=== PATIENT | female | born 1985 | race Two or more races ===

== ENCOUNTER 2017-03-12 20:36 | Emergency (ER) | payer OTHER ==
[~2017-03-12] VITALS: Ht 157.5 cm; Wt 114.8 kg
[~2017-03-12 20:36] MED LIST: AZIT250T6 PO; HYDR1TAB14 PO; PROM50SU6 RC
[2017-03-12 20:57] VITALS: BP 118/63
[2017-03-12] MEDS: IV NORMAL SALINE 1,000ML 1,000 ML IV SCH ×2 (21:20→22:50)
[2017-03-12] MEDS ORDERED: 0.9 % SODIUM CHLORIDE 10 ML DISP.SYRIN. IV PRN (21:30)
[2017-03-12 21:41] LABS: BILIRUBIN,URINE NEG (NEG); CLARITY,URINE CLOUDY; COLOR,URINE YELLOW; GLUCOSE,URINE NEG (NEG); NITRITE,URINE NEG (NEG); UROBILINOGEN,URINE 0.2 mg/dL (0.2 mg/dL)
[2017-03-12 21:42] LABS: BACTERIA,URINE 0 /HPF (0-FEW); RBC,URINE OCC /HPF (0-2); SQUAMOUS EPITHELIAL CELL,UR MANY /LPF
[2017-03-12 21:43] LABS: AMORPHOUS SEDIMENT,UR PRESENT /HPF
--- NOTE | 2017-03-12 23:18 | RAD ---
Examination: Transabdominal, transvaginal ultrasound examination the pelvis. HISTORY History of pelvic pain, history of fibroid COMPARISON None available Findings: The uterus measures 9.3 x 5.9 x 4.6 centimeters. The cervical length measures 4.3 centimeters. There is a 1.8 x 0.8x 0.8 centimeter hypo echogenicity identified in the uterus likely a fibroid. Intrauterine gestational sac is identified. A yolk sac is identified. A pole is not identified. Gestational age corresponds to 5 weeks and 2 days with gestational sac measuring 0.6 centimeters. There is a complex appearing cystic structure identified in the left ovary probably a cyst. In the right ovary there is a 2.3 x 2.8 x 2.7 centimeters cyst and a smaller cystic structure measuring 2.1 centimeters probably a corpus luteal cyst. IMPRESSION I. Intrauterine gestational sac with yolk sac identified. A pole is not identified likely early . Close interval followup serial quantitative beta HCG levels and ultrasound is recommended. 2. Complex appearing cyst identified in the left ovary measuring 2 centimeters. A 2.8 centimeters cyst identified in the right ovary. A complex appearing cystic structure identified in the right ovary measuring 2.1 centimeters probably a corpus luteal cyst. 3. 1.3 centimeter hypo echogenicity identified in the uterus likely a fibroid. Electronically signed by: Mateusz Raines (Mar 12, 2017 23:16:54)
[2017-03-12 23:23] LABS: BASO % 0 % (0-3); EOS # 0.1 x10^3/uL (0.0-0.7); EOS % 1 % (0-3); HEMATOCRIT 42.6 % (36.0-47.0); HEMOGLOBIN 14.3 g/dL (12.0-15.5); LYMPH # 4.3 x10^3/uL (1.0-4.8); LYMPH % 31 % (24-48); MEAN CORPUSCULAR HEMOGLOBIN 30 pg (25-35); MEAN CORPUSCULAR HGB CONC 34 g/dL (31-37); MEAN CORPUSCULAR VOLUME 89 fL (79-100); MONO # 0.7 x10^3/uL (0.0-1.1); MONO % 5 % (0-9); NEUT # 8.7 x10^3uL (1.8-7.7); NEUT % 63 % (31-73); PLATELET COUNT 330 x10^3/uL (140-400); RED BLOOD COUNT 4.77 x10^6/uL (3.50-5.40); RED CELL DISTRIBUTION WIDTH 13.9 % (11.5-14.5); WHITE BLOOD COUNT 13.8 x10^3/uL (4.0-11.0)
[2017-03-12 23:26] LABS: CREATININE 0.9 mg/dL (0.6-1.0); GFR 73.5; POTASSIUM 3.6 mmol/L (3.5-5.1)
[2017-03-12] MEDS ORDERED: ONDA8TAB12 PO (23:47)
--- NOTE | 2017-03-13 00:02 | ED.ADGEN ---
Past History Past Medical History: No Pertinent History Past Surgical History: No Surgical History, Tonsillectomy Smoking: Cigarettes Additional Smoking Information: usually 1 ppd x 16 yrs, has recently cut back to 7 cigarettes per day Alcohol Use: Rarely Drug Use: Marijuana Adult General Chief Complaint Chief Complaint Abdominal pain, nausea early HPI HPI A status post pleasant 32-year-old female 010 approximate 6-7 weeks by last Bolaños. Presented with sharp lower abdominal pain. She began having pain about a week ago is been intermittent but progressively worse today when she was at work described as pressure and sharp in the lower suprapubic area. She denies any vaginal bleeding or discharge UTI symptoms or hematuria. She denies any nausea vomiting at this time was suffering from nausea during the week. She denies any trauma denies any diarrhea denies any travel outside the country denies any recent antimicrobials. Is sexually active at this time and no history of sexual transmitted diseases. She does not have no joint especially taking Zofran and vitamins. Review of Systems Review of Systems Constitutional: Denies fever or chills [] Eyes: Denies change in visual acuity, redness, or eye pain [] HENT: Denies nasal congestion or sore throat [] Respiratory: Denies cough or shortness of breath [] Cardiovascular: No additional information not addressed in HPI [] GI: Describes abdominal pain with nausea no vomiting or diarrhea at this time : Denies dysuria or hematuria [] Musculoskeletal: Denies back pain or joint pain [] Integument: Denies rash or skin lesions [] Neurologic: Denies headache, focal weakness or sensory changes [] Endocrine: Denies polyuria or polydipsia [] Current Medications Current Medications Current Medications Medications (Trade) Dose Ordered Sig/Marcelo Start Time Stop Time Status Last Admin Dose Admin Sodium Chloride (Iv Sodium Chloride 0.9% 1,000ml) 1,000 ml @ 1,000 mls/hr Q1H 03/12/17 21:20 03/12/17 22:19 DC 03/12/17 22:50 1,000 MLS/HR Sodium Chloride (Normal Saline Flush) 10 ml QSHIFT PRN 03/12/17 21:30 03/12/17 22:45 10 ML Vital Sign - Last 24 Hours 03/12/17 03/12/17 20:45 20:57 Temp 99.0 99.0 Pulse 78 78 Resp 16 16 B/P 118/63 Pulse Ox 97 97 O2 Delivery Room Air Room Air Allergies Allergies Allergies Coded Allergies Type Severity Reaction Last Updated Verified Iodinated Contrast Media - Oral and Allergy Severe Swelling 03/12/17 Yes morphine Allergy Severe Itching 04/12/16 Yes tomato Allergy Unknown 03/12/17 Yes Physical Exam Physical Exam Constitutional: Well developed, well nourished, no acute distress, non-toxic appearance. [] HENT: Normocephalic, atraumatic, bilateral external ears normal, oropharynx moist, no oral exudates, nose normal. [] Eyes: PERRLA, EOMI, conjunctiva normal, no discharge. [] Neck: Normal range of motion, no tenderness, supple, no stridor. [] Cardiovascular:Heart rate regular rhythm, no murmur [] Lungs & Thorax: Bilateral breath sounds clear to auscultation [] Abdomen: Bowel sounds normal, soft, no tenderness, no masses, no pulsatile masses. [] exam demonstrates normal looking mucosa normal external vaginal appearance no discharge no CMT or adnexal masses no vaginal bleeding. Os is closed Skin: Warm, dry, no erythema, no rash. [] Back: No tenderness, no CVA tenderness. [] Extremities: No tenderness, no cyanosis, no clubbing, ROM intact, no edema. [] Neurologic: Alert and oriented X 3, normal motor function, normal sensory function, no focal deficits noted. [] Psychologic: Affect normal, judgement normal, mood normal. [] Current Patient Data Vital Signs Vital Signs Date Time Temp Pulse Resp B/P Pulse Ox O2 Delivery O2 Flow Rate FiO2 03/12/17 20:57 99.0 78 16 118/63 97 Room Air Lab Results Laboratory Tests Test 03/12/17 20:40 03/12/17 22:40 Urine Collection Type Unknown Urine Color Yellow Urine Clarity Cloudy Urine pH 7.0 Urine Specific Allons 1.020 Urine Protein Neg (NEG-TRACE) Urine Glucose (UA) Negmg/dL (NEG) Urine Ketones (Stick) Negmg/dL (NEG) Urine Blood Neg (NEG) Urine Nitrite Neg (NEG) Urine Bilirubin Neg (NEG) Urine Urobilinogen Dipstick 0.2mg/dL (0.2 mg/dL) Urine Leukocyte Esterase Neg (NEG) Urine RBC Occ/HPF (0-2) Urine WBC 1-4/HPF (0-4) Urine Squamous Epithelial Cells Many/LPF Urine Amorphous Sediment Present/HPF Urine Bacteria 0/HPF (0-FEW) White Blood Count 13.8x10^3/uL (4.0-11.0) H Red Blood Count 4.77x10^6/uL (3.50-5.40) Hemoglobin 14.3g/dL (12.0-15.5) Hematocrit 42.6% (36.0-47.0) Mean Corpuscular Volume 89fL (79-100) Mean Corpuscular Hemoglobin 30pg (25-35) Mean Corpuscular Hemoglobin Concent 34g/dL (31-37) Red Cell Distribution Width 13.9% (11.5-14.5) Platelet Count 330x10^3/uL (140-400) Neutrophils (%) (Auto) 63% (31-73) Lymphocytes (%) (Auto) 31% (24-48) Monocytes (%) (Auto) 5% (0-9) Eosinophils (%) (Auto) 1% (0-3) Basophils (%) (Auto) 0% (0-3) Neutrophils # (Auto) 8.7x10^3uL (1.8-7.7) H Lymphocytes # (Auto) 4.3x10^3/uL (1.0-4.8) Monocytes # (Auto) 0.7x10^3/uL (0.0-1.1) Eosinophils # (Auto) 0.1x10^3/uL (0.0-0.7) Basophils # (Auto) 0.0x10^3/uL (0.0-0.2) Sodium Level 137mmol/L (136-145) Potassium Level 3.6mmol/L (3.5-5.1) Chloride Level 103mmol/L (98-107) Carbon Dioxide Level 23mmol/L (21-32) Anion Gap 11 (6-14) Blood Urea Nitrogen 7mg/dL (7-20) Creatinine 0.9mg/dL (0.6-1.0) Estimated GFR (Cockcroft-Gault) 73.5 Glucose Level 81mg/dL (70-99) Calcium Level 9.0mg/dL (8.5-10.1) EKG EKG [] Radiology/Procedures Radiology/Procedures Vital Signs Date Time Temp Pulse Resp B/P Pulse Ox O2 Delivery O2 Flow Rate FiO2 03/12/17 20:57 99.0 78 16 118/63 97 Room Air [] PATIENT: CHIDI VALENZUELA ACCOUNT: [id number] : 1985 LOCATION: ER AGE: 32 SEX: F EXAM STATUS: PRE ER ORD. PHYSICIAN: CRISTELA COLLINS MD REASON: early PROCEDURE: PREG 1ST TRIMESTER Examination: Transabdominal, transvaginal ultrasound examination the pelvis. HISTORY History of pelvic pain, history of fibroid COMPARISON None available Findings: The uterus measures 9.3 x 5.9 x 4.6 centimeters. The cervical length measures 4.3 centimeters. There is a 1.8 x 0.8x 0.8 centimeter hypo echogenicity identified in the uterus likely a fibroid. Intrauterine gestational sac is identified. A yolk sac is identified. A pole is not identified. Gestational age corresponds to 5 weeks and 2 days with gestational sac measuring 0.6 centimeters. There is a complex appearing cystic structure identified in the left ovary probably a cyst. In the right ovary there is a 2.3 x 2.8 x 2.7 centimeters cyst and a smaller cystic structure measuring 2.1 centimeters probably a corpus luteal cyst. IMPRESSION I. Intrauterine gestational sac with yolk sac identified. A pole is not identified likely early . Close interval followup serial quantitative beta HCG levels and ultrasound is recommended. 2. Complex appearing cyst identified in the left ovary measuring 2 centimeters. A 2.8 centimeters cyst identified in the right ovary. A complex appearing cystic structure identified in the right ovary measuring 2.1 centimeters probably a corpus luteal cyst. 3. 1.3 centimeter hypo echogenicity identified in the uterus likely a fibroid. Electronically signed by: Mateusz Raines (Mar 12, 2017 23:16:54) Impressions: Threatened miscarriage, nausea vomiting, abdominal pain. Course & Med Decision Making Course & Med Decision Making Patient is a pleasant 32-year-old female with a history of abdominal pain without a documented IUP on ultrasound. Today she seemed stable with normal labs on this 2344 with a ultrasound demonstrating a 5 week gestational IUP. Her [facility] exam was within normal limits her belly was soft she had no nausea and vomiting here in the emergency department. She is provided fluids or analysis was evaluated there and shooting some epithelial cells and contamination but no bacteria or white cells concerning for UTI. Patient will follow up with her primary care doctor for continued evaluation of her . At this point patient is referred back to [facility] for routine management of her . She was given precautions with bleeding and pain asked to return for any question or concern she might have worsening symptoms fevers chills or inability to tolerate food or fluids or should any questions or concerns. Pertinent Labs and Imaging studies reviewed. (See chart for details) [] Final Impression Final Impression Threatened miscarriage, nausea vomiting [] Problems: Dragon Disclaimer Dragon Disclaimer This electronic medical record was generated, in whole or in part, using a voice recognition dictation system. CRISTELA COLLINS MD Mar 13, 2017 00:02
== END 2017-03-12 23:55 | disposition home or self-care (01) ==
LOC: ER 20:36
DX: O20.0 Threatened abortion (principal); R11.2 Nausea with vomiting, unspecified; R10.30 Lower abdominal pain, unspecified; O99.331 Smoking (tobacco) complicating pregnancy, first trimester; F12.10 Cannabis abuse, uncomplicated; Z3A.01 Less than 8 weeks gestation of pregnancy; Z91.041 Radiographic dye allergy status; Z88.5 Allergy status to narcotic agent; Z91.018 Allergy to other foods
CPT/HCPCS: 36415; 76801; 80048; 81001; 84702; 85027; 86900; 86901; 96361; 96374; 99285-25; J7030

== ENCOUNTER 2017-07-19 13:58 | Emergency (ER) | payer OTHER ==
[~2017-07-19 13:58] MED LIST changes: +ONDA8TAB12 PO
[2017-07-19 14:05] VITALS: BP 127/63
--- NOTE | 2017-07-19 14:54 | PHYS DOC ---
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 No head neck or back injury. Patient is . Patient does does not describe any abdominal pain or vaginal bleeding. Patient also complaining of pain at the tailbone. Review of Systems Review of Systems Constitutional: Denies fever or chills [] HENT: Denies neck pain Respiratory: Denies cough or shortness of breath [] Cardiovascular: Denies chest wall pain GI: Denies abdominal pain, : No vaginal bleeding Musculoskeletal: Pain only a telephone Integument: Denies rash or skin lesions [] Neurologic: Denies headache, focal weakness or sensory changes [] Allergies Allergies Allergies Coded Allergies Type Severity Reaction Last Updated Verified Iodinated Contrast Media - Oral and Allergy Severe Swelling 03/12/17 Yes morphine Allergy Severe Itching 04/12/16 Yes tomato Allergy Unknown 03/12/17 Yes Physical Exam Physical Exam Constitutional: Well developed, well nourished, no acute distress, non-toxic appearance. [] HENT: Normocephalic, atraumatic, Eyes: EOMI, conjunctiva normal, no discharge. [] Neck: Normal range of motion, no tenderness, trachea midline Cardiovascular: No deformity, normal perfusion Lungs & Thorax: No tachypnea Abdomen: Bowel sounds normal, soft, no tenderness, Skin: Warm, dry, no erythema, no rash. [] Back: No tenderness, no step-offs Extremities: No tenderness, ROM intact, no edema. [] Neurologic: Alert and oriented X 3, normal motor function, ambulates in the ED without difficulty and with normal gait no focal deficits noted. [] Psychologic: Affect normal, judgement normal, mood normal. [] Current Patient Data Vital Signs Vital Signs Date Time Temp Pulse Resp B/P (MAP) Pulse Ox O2 Delivery O2 Flow Rate FiO2 07/19/17 14:05 98.0 100 18 98 Room Air EKG EKG [] Radiology/Procedures Radiology/Procedures [] Course & Med Decision Making Course & Med Decision Making Pertinent Labs and Imaging studies reviewed. (See chart for details) [] Dragon Disclaimer Dragon Disclaimer This chart was dictated in whole or in part using Voice Recognition software in a busy, high-work load, and often noisy Emergency Department environment. It may contain unintended and wholly unrecognized errors or omissions. Departure Departure: Impression: Primary Impression: Tailbone injury Disposition: HOME, SELF-CARE Condition: STABLE Referrals: PCP,UNKNOWN (PCP) please follow up with your doctor for recheck in 2-4 days if your symptoms do not resolve Patient Instructions: Tailbone Injury Additional Instructions: you may take tylenol for pain control Trip LUDWIG MD Jul 19, 2017 14:54
== END 2017-07-19 15:00 | disposition home or self-care (01) ==
LOC: ER 14:05
DX: O9A.219 Injury, poisoning and certain other consequences of external causes complicating pregnancy, unspecified trimester (principal); S39.92XA Unspecified injury of lower back, initial encounter; O99.330 Smoking (tobacco) complicating pregnancy, unspecified trimester; Z3A.00 Weeks of gestation of pregnancy not specified; Z91.041 Radiographic dye allergy status; Z88.5 Allergy status to narcotic agent; Z91.018 Allergy to other foods; W19.XXXA Unspecified fall, initial encounter; Y93.89 Activity, other specified; Y99.8 Other external cause status; Y92.89 Other specified places as the place of occurrence of the external cause
CPT/HCPCS: 99281

== ENCOUNTER 2018-06-03 20:09 | Emergency (ER) | payer OTHER ==
[~2018-06-03] VITALS: Ht 157.5 cm; Wt 125.8 kg
--- NOTE | 2018-06-03 20:39 | PHYS DOC ---
Past History Past Medical History: Depression Past Surgical History: Tonsillectomy Smoking: Cigarettes Alcohol Use: None Drug Use: None Adult General Chief Complaint Chief Complaint: ABDOMINAL PAIN IN HPI HPI Patient is a 33-year-old female presents to the emergency department for evaluation. She states that she has had some pelvic pain for the past 24 hours. She states she found that she was earlier this week. She is uncertain when her last menstrual period was. She is uncertain if she had a period in March but did not have one in April. She denies any nausea, vomiting, vaginal bleeding , or discharge, or any urinary symptoms. She has not had any fevers or chills. This is her second , her first ended in a term vaginal delivery. There are no alleviating, or exacerbating factors to her symptoms. She states that she has been under a lot of stress recently and is concerned that her stress might be the cause of her pain. She denies any suicidal or homicidal thoughts. Review of Systems Review of Systems Constitutional: Denies fever or chills [] Eyes: Denies change in visual acuity, redness, or eye pain [] HENT: Denies nasal congestion or sore throat [] Respiratory: Denies cough or shortness of breath [] Cardiovascular:The patient denies any shortness of breath, chest pain, palpitations, or orthopnea [] GI: Denies nausea, vomiting, bloody stools or diarrhea [] : Denies dysuria or hematuria, vaginal bleeding or discharge. Does report some pelvic/lower abdominal pain [] Musculoskeletal: Denies back pain or joint pain [] Integument: Denies rash or skin lesions [] Neurologic: Denies headache, focal weakness or sensory changes [] Endocrine: Denies polyuria or polydipsia [] All other systems were reviewed and found to be within normal limits, except as documented in this note. Allergies Allergies Allergies Coded Allergies Type Severity Reaction Last Updated Verified Iodinated Contrast Media - Oral and Allergy Severe Swelling 03/12/17 Yes morphine Allergy Severe Itching 04/12/16 Yes tomato Allergy Unknown 03/12/17 Yes Physical Exam Physical Exam PHYSICAL EXAM: CONSTITUTIONAL: Well developed, well nourished HEAD: normocephalic, atraumatic EENT: PERRL, EOMI. Conjunctivae normal color, sclerae non-icteric; moist mucous membranes. NECK: Supple, non-tender; no meningismus. LUNGS: Lungs CTA, breathing even and unlabored. Normal air movement. HEART: Regular rate and rhythm, no murmur CHEST: No deformity; non-tender ABDOMEN: The abdomen is soft, there is focal suprapubic tenderness to palpation , with bilateral suprapubic tenderness to palpation as well as midline, there is mild diffuse tenderness to palpation in the remainder of the lower abdomen, somewhat more prominent on the right greater than left, the upper abdomen is non -tender, there is no rebound or guarding, no masses or bruits. EXTREM: Normal ROM; no deformity, no calf tenderness. Normal pulses palpable in all extremities. There is no pedal edema. SKIN: No rash; no diaphoresis NEURO: Alert; normal speech and cognition; CN's grossly intact; strength grossly intact without focal deficit. BACK: No CVA TTP. PELVIC EXAM: Normal external genitalia. The parents cervix appears normal. There is no significant vaginal discharge. There is no definite cervical motion tenderness. There is diffuse pelvic and adnexal tenderness to palpation without any definite abdominal tenderness to palpation. Exam was performed in the presence of Susan Holm. Current Patient Data Lab Results Laboratory Tests Test 06/03/18 19:45 POC Urine HCG, Qualitative hcg positive (Negative) WET PREP Final YEAST NONE SEEN TRICHOMONAS NONE SEEN CLUE CELLS NONE SEEN WBCS OCCASIONAL RBCS NO RBCS SEEN SQUAMOUS EPS OCCASIONAL Patient is type O positive. White blood count is 15,000, remainder of chemistry CBC is unremarkable. Beta hCG 18,000. EKG EKG [] Radiology/Procedures Radiology/Procedures [PROCEDURE: OB <14 WKS W/TV Indication:rt sided pain x 1 days TECHNIQUE: Grayscale, color Doppler and spectral waveform is of the pelvis obtained. COMPARISON:None FINDINGS: The uterus measures 10.0 x 5.5 x 7.0 cm (longitudinal, AP, transverse). Cervix measures 4.4 cm in length and is closed. Single intrauterine line is seen with cardiac activity at the rate of 143 bpm. The crown-rump length measures 0.97 cm corresponding to gestation age of 7 weeks 0 days. Yolk sac is seen. The right ovary measures 2.8 x 1.5 x 2.1 cm. The left ovary measures 3.6 x 2.0 x 2.5 cm with a thick-walled cystic lesion measuring 2.3 x 1.2 x 1.7 cm. No vascularity seen in this lesion. IMPRESSION: 1. Single viable intrauterine with estimated gestation age of 7 weeks 0 days. 2. Thick-walled left ovarian cystic lesion likely corpus luteal cyst of . ] Course & Med Decision Making Course & Med Decision Making Pertinent Labs and Imaging studies reviewed. (See chart for details) [10:30 PM: The patient's condition remained stable. She has been reexamined and still does have right lower quadrant tenderness to palpation.] I'm unable to exclude appendicitis at this time. I do not believe ultrasound is appropriate imaging modality given the patient's abdominal girth. It is not likely to be of high yield. I do believe the patient warrants an MRI to rule out appendicitis, given the leukocytosis. MRI is not available at this facility. I spoke with Dr. Stinson, ER physician in [facility] who has accepted the patient in transfer for further diagnostic evaluation. The patient's MRI is negative she can be discharged OB follow-up. Dragon Disclaimer Dragon Disclaimer This electronic medical record was generated, in whole or in part, using a voice recognition dictation system. Departure Departure: Impression: Primary Impression: Abdominal pain Additional Impression: Disposition: 02 XFER SHT-TRM HOSP (ER @ [facility]) Condition: STABLE Referrals: PCP,UNKNOWN (PCP) Problem Qualifiers AMAURY SENA MD Jun 03, 2018 20:39
[2018-06-03] MEDS ORDERED: ACETAMINOPHEN 325 MG TABLET PO ONE (20:45)
[2018-06-03 21:10] LABS: BASO # 0.1 x10^3/uL (0.0-0.2); BASO % 0 % (0-3); EOS # 0.2 x10^3/uL (0.0-0.7); EOS % 1 % (0-3); HEMATOCRIT 41.2 % (36.0-47.0); HEMOGLOBIN 13.9 g/dL (12.0-15.5); LYMPH # 3.2 x10^3/uL (1.0-4.8); LYMPH % 22 % (24-48); MEAN CORPUSCULAR HEMOGLOBIN 29 pg (25-35); MEAN CORPUSCULAR HGB CONC 34 g/dL (31-37); MEAN CORPUSCULAR VOLUME 87 fL (79-100); MONO # 0.8 x10^3/uL (0.0-1.1); MONO % 5 % (0-9); NEUT # 10.8 x10^3uL (1.8-7.7); NEUT % 72 % (31-73); PLATELET COUNT 293 x10^3/uL (140-400); RED BLOOD COUNT 4.74 x10^6/uL (3.50-5.40); RED CELL DISTRIBUTION WIDTH 13.6 % (11.5-14.5)
[2018-06-03 21:28] LABS: ALBUMIN 3.2 g/dL (3.4-5.0); CALCIUM 8.7 mg/dL (8.5-10.1); CREATININE 0.9 mg/dL (0.6-1.0); DIRECT BILIRUBIN 0.1 mg/dL (0.0-0.2); POTASSIUM 3.5 mmol/L (3.5-5.1); TOTAL BILIRUBIN 0.2 mg/dL (0.2-1.0); TOTAL PROTEIN 7.3 g/dL (6.4-8.2)
[2018-06-03 21:39] LABS: BILIRUBIN,URINE NEG (NEG); CLARITY,URINE HAZY; COLOR,URINE YELLOW; GLUCOSE,URINE NEG (NEG); NITRITE,URINE NEG (NEG); UROBILINOGEN,URINE 0.2 mg/dL (0.2 mg/dL)
[2018-06-03 21:40] LABS: BACTERIA,URINE FEW /HPF (0-FEW); RBC,URINE RARE /HPF (0-2); SQUAMOUS EPITHELIAL CELL,UR MOD /LPF; WBC,URINE OCC /HPF (0-4)
--- NOTE | 2018-06-03 22:16 | RAD ---
Indication:rt sided pain x 1 days TECHNIQUE: Grayscale, color Doppler and spectral waveform is of the pelvis obtained. COMPARISON:None FINDINGS: The uterus measures 10.0 x 5.5 x 7.0 cm (longitudinal, AP, transverse). Cervix measures 4.4 cm in length and is closed. Single intrauterine line is seen with cardiac activity at the rate of 143 bpm. The crown-rump length measures 0.97 cm corresponding to gestation age of 7 weeks 0 days. Yolk sac is seen. The right ovary measures 2.8 x 1.5 x 2.1 cm. The left ovary measures 3.6 x 2.0 x 2.5 cm with a thick-walled cystic lesion measuring 2.3 x 1.2 x 1.7 cm. No vascularity seen in this lesion. IMPRESSION: 1. Single viable intrauterine with estimated gestation age of 7 weeks 0 days. 2. Thick-walled left ovarian cystic lesion likely corpus luteal cyst of . Electronically signed by: Nate Goodman DO (06/03/2018 10:13 PM) [facility]
[2018-06-03 22:53] VITALS: BP 138/72
[2018-06-07 16:13] LABS: CHLAMYDIA PROBE Negative (Negative)
== END 2018-06-03 23:08 | disposition short-term general hospital (02) ==
LOC: ER 20:09
DX: O26.891 Other specified pregnancy related conditions, first trimester (principal); R10.2 Pelvic and perineal pain; R10.31 Right lower quadrant pain; O99.331 Smoking (tobacco) complicating pregnancy, first trimester; Z3A.01 Less than 8 weeks gestation of pregnancy; Z88.5 Allergy status to narcotic agent; Z91.041 Radiographic dye allergy status; Z91.018 Allergy to other foods
CPT/HCPCS: 36415; 76801; 76817; 80048; 80076; 81001; 81025; 83690; 84702; 85025; 86900; 86901; 87491; 87591; 99285; Q0111